=== PATIENT | female | born 1980 | race Caucasian/White ===

== ENCOUNTER 2016-11-12 13:32 | Emergency (ER) | payer OTHER ==
--- NOTE | 2016-11-12 14:16 | UC ---
Palpitation/Dysrhythmia HP - HPI Summary HPI Summary: 36 yo female with hx panic attacks/PTSD presents here because this AM in the shower she felt palpitations and becam hear syncope Still does feel right /having palpitations but no near faints no GARCÍA no SOB no hx heart murmur no f/c or URI symptoms - History of Current Complaint Chief Complaint: UCDizziness Stated Complaint: DIZZINESS Time Seen by Provider: 11/12/16 13:50 Hx Obtained From: Patient Hx Last Menstrual Period: 10/26/16 Onset/Duration: Sudden Onset, Still Present Timing: Constant Severity Initially: Severe Severity Currently: Mild Pain Intensity: 0 Pain Scale Used: 0-10 Numeric Character: Fast, Irregular Aggravating Factor(s): Nothing Alleviating Factor(s): Nothing Associated Signs & Symptoms: Positive: Lightheadedness - Allergy/Home Medications Allergies/Adverse Reactions: Allergies Allergy/AdvReac Type Severity Reaction Status Date / Time No Known Allergies Allergy Verified 11/12/16 13:49 PMH/Surg Hx/FS Hx/Imm Hx Previously Healthy: Yes Psychological History Of: Reports: Anxiety, Post Traumatic Stress Disorder - Surgical History Surgical History: Yes Surgery Procedure, Year, and Place: appy - Family History Known Family History: Positive: None Negative: Hypertension, Diabetes - Social History Alcohol Use: Weekly Substance Use Type: Marijuana Substance Use Comment - Amount & Last Used: occasional Smoking Status (MU): Light Every Day Tobacco Smoker Amount Used/How Often: 1/2 ppd Review of Systems Constitutional: Negative Skin: Negative Eyes: Negative ENT: Negative Respiratory: Negative Cardiovascular: Palpitations Gastrointestinal: Negative Genitourinary: Negative Motor: Negative Neurovascular: Negative Musculoskeletal: Negative Neurological: Negative Psychological: Anxious All Other Systems Reviewed And Are Negative: Yes Physical Exam Triage Information Reviewed: Yes Appearance: Well-Appearing, No Pain Distress, Well-Nourished Vital Signs: Initial Vital Signs Temp 97.9 F 11/12/16 13:44 Pulse 104 11/12/16 13:44 Resp 20 11/12/16 13:44 BP 147/91 11/12/16 13:44 Pulse Ox 98 11/12/16 13:44 Vital Signs Reviewed: Yes Eyes: Positive: Conjunctiva Clear ENT: Positive: Hearing grossly normal, Pharynx normal, TMs normal. Negative: Nasal congestion, Nasal drainage, Tonsillar exudate, Trismus, Muffled/hoarse voice Neck: Positive: Supple, Nontender, Other: - no thyromegaly Respiratory: Positive: Lungs clear, Normal breath sounds, No respiratory distress, No accessory muscle use Cardiovascular: Positive: RRR, No Murmur Abdomen Description: Positive: Nontender, No Organomegaly, Soft Bowel Sounds: Positive: Present Musculoskeletal: Positive: ROM Intact, No Edema Neurological Exam: Normal Neurological: Positive: Alert Psychological Exam: Normal Skin Exam: Normal Palpitations Course/Dx - Course Course Of Treatment: (-) orthostatics - Differential Dx/Diagnosis Provider Diagnoses: palpitations. near syncope. anxiety Discharge - Discharge Plan Condition: Stable Disposition: HOME Prescriptions: clonazePAM TAB(*) [KlonoPIN TAB(*)] 0.5 mg PO TID PRN #15 tab MDD 3 PRN Reason: Anxiety - Severe Patient Education Materials: Palpitations (ED), Near Syncope (ED), Anxiety (ED) Referrals: Magdalene Almonte MD [Primary Care Provider] - As Soon As Possible Additional Instructions: blood work pending
[2016-11-12 14:36] VITALS: BP 123/78
[2016-11-12 19:01] LABS: Hematocrit 43 % (35-47); Hemoglobin 14.1 g/dl (12.0-16.0); Mean Corpuscular HGB Conc 33 g/dl (31-36); Mean Corpuscular Hemoglobin 30 pg (27-31); Mean Corpuscular Volume 90 fL (80-97); Mean Platelet Volume 9 um3 (7.4-10.4); Red Blood Count 4.77 10^6/ul (4.0-5.4); Red Cell Distribution Width 14 % (10.5-15); White Blood Count 11.8 10^3/ul (3.5-10.8)
[2016-11-12 19:20] LABS: BUN/Creatinine Ratio 21.5 (8-20); EGFR African American 88.2 (>60); EGFR Non-African American 68.6 (>60); Potassium 4.3 mmol/L (3.5-5.0)
== END 2016-11-12 14:53 | disposition home or self-care (01) ==
LOC: UCEAST 13:32
DX: R00.2 Palpitations (principal); R55 Syncope and collapse; F41.9 Anxiety disorder, unspecified; F17.210 Nicotine dependence, cigarettes, uncomplicated
CPT/HCPCS: 36415; 80048; 85025; 93005; 99212; G0463